=== PATIENT | male | born 1945 | race Caucasian/White ===

== ENCOUNTER → 2017-03-14 | Outpatient (CLI) | payer MEDICARE, OTHER ==
[~2017-03-14] MED LIST: REGADENOSON 0.4 MG/5 ML SYRINGE ONE
== END | disposition home or self-care (01) ==
LOC: CFH 08:11
PROVIDERS: ATTEND Internal Medicine Cardiovascular Disease
DX: I48.91 Unspecified atrial fibrillation (principal); I10 Essential (primary) hypertension
CPT/HCPCS: 78452; 93017; A9502; J2785

== ENCOUNTER → 2017-03-17 | Outpatient (CLI) | payer MEDICARE, OTHER ==
[~2017-03-17] MED LIST changes: +ASPI-496 PO; +ATOR40TA78 PO; +CLOP75TA PO; +DRON400T PO; +ISOS60TA36 PO; +METO-93 PO; +MULT-658 PO; +OMEG-76 PO; +RED600CA2 PO; -REGADENOSON 0.4 MG/5 ML SYRINGE ONE; +UBID1CAP43 PO
[2017-03-17 14:15] LABS: HEMATOCRIT 42.5 % (39.2-51.8); HEMOGLOBIN 14.7 g/dL (13.7-18.0); WHITE BLOOD COUNT 7.7 x10^3/uL (3.4-10)
[2017-03-17 14:25] LABS: BLOOD UREA NITROGEN 16 mg/dL (7-18)
== END | disposition home or self-care (01) ==
LOC: STAR 13:09
PROVIDERS: ATTEND Internal Medicine Cardiovascular Disease
DX: I48.0 Paroxysmal atrial fibrillation (principal); I10 Essential (primary) hypertension; E78.4 Other hyperlipidemia; I25.118 Atherosclerotic heart disease of native coronary artery with other forms of angina pectoris
CPT/HCPCS: 36415; 80048; 85025

== ENCOUNTER 2017-03-27 10:36 | Day surgery (SDC) | payer MEDICARE, OTHER ==
[~2017-03-27] VITALS: Ht 185.4 cm; Wt 82.7 kg
[2017-03-27] MEDS ORDERED: SODIUM CHLORIDE 0.9% 1,000 ML IV ONE (10:48)
[2017-03-27 11:49] LABS: BLOOD UREA NITROGEN 18 mg/dL (7-18)
[2017-03-27] MEDS ORDERED: VERAPAMIL 2.5 MG/ML, 2ML ONE (12:17)
[2017-03-27] MEDS ORDERED: MIDAZOLAM 1 MG/ML, 5ML ONE (12:17)
[2017-03-27] MEDS ORDERED: FENTANYL PF 100 MCG/2ML ONE (12:17)
[2017-03-27] MEDS ORDERED: LIDOCAINE 2%, 20ML ONE (12:17)
[2017-03-27] MEDS ORDERED: TICAGRELOR 90 MG TABLET ONE (12:17)
[2017-03-27] MEDS ORDERED: NITROGLYCERIN 5 MG/ML, 10ML ONE (12:17)
[2017-03-27] MEDS ORDERED: BIVALIRUDIN 250 MG ONE (12:17)
[2017-03-27] MEDS ORDERED: HEPARIN 1,000 UNITS/ML, 10ML ONE (12:18)
[2017-03-27 15:52] VITALS: BP 106/66
[2017-03-27 19:08] VITALS: BP 151/74
== END 2017-03-27 23:46 | disposition home or self-care (01) ==
LOC: CACL 10:36 → 5SO 14:50 → CACL 23:46
PROVIDERS: ATTEND Internal Medicine Cardiovascular Disease
DX: I25.110 Atherosclerotic heart disease of native coronary artery with unstable angina pectoris (principal); I10 Essential (primary) hypertension; E78.5 Hyperlipidemia, unspecified; Z79.82 Long term (current) use of aspirin
CPT/HCPCS: 36415; 80048; 93458; 99156; 99157; C1725; C1769; C1874; C1887; C1894; C9600; J0583; J1644; J2250; J3010; J3490; J7030; Q9967

== ENCOUNTER → 2017-05-02 | Outpatient (CLI) | payer MEDICARE, OTHER ==
[~2017-05-02] MED LIST changes: +APIX5TAB PO; +OMNIPAQUE 350 MG/ML, 150 ML BOTTLE ONE; +SOTA120T14 PO
== END ==
LOC: CFH 11:34
PROVIDERS: ATTEND Internal Medicine Cardiovascular Disease
DX: I48.91 Unspecified atrial fibrillation (principal); I25.118 Atherosclerotic heart disease of native coronary artery with other forms of angina pectoris; E78.2 Mixed hyperlipidemia; I10 Essential (primary) hypertension; I48.0 Paroxysmal atrial fibrillation
CPT/HCPCS: 71046; 75572; 82565; Q9967

== ENCOUNTER 2017-05-03 06:23 | Inpatient (IN) | payer MEDICARE, OTHER ==
[2017-05-02 13:23] VITALS: BP 146/95
[~2017-05-03] VITALS: Ht 185.4 cm; Wt 83.7 kg
[~2017-05-03 06:23] MED LIST changes: -APIX5TAB PO; -OMNIPAQUE 350 MG/ML, 150 ML BOTTLE ONE; -SOTA120T14 PO
[2017-05-03] MEDS ORDERED: SODIUM CHLORIDE 0.9% 1,000 ML IV SCH (06:32)
[2017-05-03] MEDS ORDERED: APIX5TAB PO (06:53)
[2017-05-03] MEDS ORDERED: SODIUM CHLORIDE 0.9% 1,000 ML IV ONE (07:00)
[2017-05-03] MEDS ORDERED: LIDOCAINE 2%, 20ML ONE (07:35)
[2017-05-03] MEDS ORDERED: PROTAMINE SULFATE 10 MG/ML, 5ML ONE (07:35)
[2017-05-03] MEDS ORDERED: HEPARIN 1,000 UNITS/ML, 10ML ONE (07:35)
[2017-05-03] MEDS ORDERED: MIDAZOLAM 1 MG/ML, 5ML ONE (07:57)
[2017-05-03] MEDS ORDERED: FENTANYL PF 250 MCG/5ML ONE (07:57)
[2017-05-03] MEDS ORDERED: APIXABAN 5 MG TABLET ONE (11:27)
[2017-05-03] MEDS: APIXABAN 5 MG TABLET PO SCH ×2 (11:30→21:36)
[2017-05-03] MEDS ORDERED: ACETAMINOPHEN 325 MG TABLET PO PRN ×2 (11:30→12:00)
[2017-05-03] MEDS ORDERED: ZOLPIDEM 5MG TABLET PO PRN (11:30)
[2017-05-03] MEDS ORDERED: LORazepam 2 MG/ML, 1ML IVPush PRN (12:00)
[2017-05-03] MEDS ORDERED: OXYcodone 5 MG/5 ML ORAL.SOL UDC PO PRN (12:00)
[2017-05-03] MEDS ORDERED: MIDAZOLAM 1 MG/ML, 2ML IV PRN (12:00)
[2017-05-03] MEDS ORDERED: HYDROmorphone 1 MG/ML, 1ML IV PRN (12:00)
[2017-05-03] MEDS ORDERED: FENTANYL PF 100 MCG/2ML IV PRN (12:00)
[2017-05-03] MEDS ORDERED: EPHEDRINE 50 MG/ML, 1ML IVPush PRN (12:00)
[2017-05-03] MEDS ORDERED: LABETALOL 5MG/ML, 20ML IV PRN (12:00)
[2017-05-03] MEDS ORDERED: ONDANSETRON 2MG/ML, 2ML IVPush PRN (12:00)
[2017-05-03 14:13] VITALS: BP 153/83
[2017-05-03] MEDS ORDERED: DEXAMETHASONE 4 MG/ML, 1ML ONE (16:23)
[2017-05-03] MEDS ORDERED: SUCCINYLCHOLINE 20 MG/ML, 10ML ONE (16:23)
[2017-05-03] MEDS ORDERED: ONDANSETRON 2MG/ML, 2ML ONE (16:23)
[2017-05-03] MEDS ORDERED: PROPOFOL 10 MG/ML, 20ML ONE (16:23)
[2017-05-03] MEDS ORDERED: MORPHINE SULFATE 4 MG/ML, 1ML IVPush PRN (17:30)
[2017-05-03] MEDS: SOTALOL 120MG TABLET PO SCH (17:54)
[2017-05-03] MEDS: OXYcodone/APAP 7.5/325MG TABLET PO PRN ×2 (17:54→23:20)
[2017-05-03 19:26] VITALS: BP 162/81
[2017-05-03 19:28] LABS: BASOPHILS % (AUTO) 0 % (0-1); EOSINOPHILS % (AUTO) 0 % (1-7); LYMPHOCYTES # (AUTO) 0.81 x10^3/uL (1-3.4); LYMPHOCYTES % (AUTO) 6 % (22-44); MD NO; MEAN CORPUSCULAR HEMOGLOBIN 33.3 pg (27.5-34.5); MEAN CORPUSCULAR HGB CONC 34.2 g/dL (33.2-36.2); MEAN CORPUSCULAR VOLUME 97.6 fL (81-97); MEAN PLATELET VOLUME 8.3 fL (7.4-10.4); MONOCYTES # (AUTO) 0.32 x10^3/uL (0.2-0.8); MONOCYTES % (AUTO) 2 % (2-9); NEUTROPHILS # (AUTO) 13.58 x10^3/uL (1.8-6.8); NEUTROPHILS % (AUTO) 92 % (42-75); PLATELET COUNT 178 x10^3/uL (130-400); RED CELL DISTRIBUTION WIDTH 12.3 % (9.4-14.8)
[2017-05-03] MEDS: ATORVASTATIN 40 MG TABLET PO SCH (21:36)
[2017-05-04 02:11] VITALS: BP 125/81
[2017-05-04] MEDS: SOTALOL 120MG TABLET PO SCH ×2 (05:56→18:36)
[2017-05-04 06:08] LABS: BASOPHILS # (AUTO) 0.04 x10^3/uL (0-0.1); BASOPHILS % (AUTO) 0 % (0-1); EOSINOPHILS # (AUTO) 0.02 x10^3/uL (0-0.4); EOSINOPHILS % (AUTO) 0 % (1-7); LYMPHOCYTES % (AUTO) 12 % (22-44); MD NO; MEAN CORPUSCULAR HEMOGLOBIN 33.4 pg (27.5-34.5); MEAN CORPUSCULAR HGB CONC 34.1 g/dL (33.2-36.2); MEAN PLATELET VOLUME 8.1 fL (7.4-10.4); MONOCYTES % (AUTO) 7 % (2-9); NEUTROPHILS # (AUTO) 10.93 x10^3/uL (1.8-6.8); NEUTROPHILS % (AUTO) 80 % (42-75); PLATELET COUNT 151 x10^3/uL (130-400); RED BLOOD COUNT 4.09 x10^6/uL (4.38-5.82); RED CELL DISTRIBUTION WIDTH 11.9 % (9.4-14.8)
[2017-05-04 06:13] LABS: ANION GAP 6 mmol/L (5-15); CALCIUM 8.6 mg/dL (8.5-10.1); CHLORIDE 106 mmol/L (98-107)
[2017-05-04 06:36] VITALS: BP 119/76
[2017-05-04] MEDS ORDERED: CLOPIDOGREL 75 MG TABLET PO SCH (09:00)
[2017-05-04] MEDS ORDERED: TEMPLATE NON-FORMULARY MED. (Ubidecarenone/Vit E Acetate (Co Q-10 100 Mg Softgel) 1 CAP) PO SCH (09:00)
[2017-05-04] MEDS ORDERED: TEMPLATE NON-FORMULARY MED. (Red Yeast Rice** 600 MG) PO SCH (09:00)
[2017-05-04] MEDS: APIXABAN 5 MG TABLET PO SCH ×2 (09:28→20:06)
[2017-05-04] MEDS: MULTIVITAMIN 1 TABLET PO SCH (09:28)
[2017-05-04] MEDS: ISOSORBIDE MONONITRATE ER 60 MG TABLET PO SCH (09:28)
[2017-05-04] MEDS: OMEGA-3/FISH OIL CAPSULE PO SCH (09:28)
[2017-05-04 13:17] VITALS: BP 119/66
[2017-05-04 18:41] VITALS: BP 122/64
[2017-05-04 19:48] VITALS: BP 103/61
[2017-05-04] MEDS: ATORVASTATIN 40 MG TABLET PO SCH (20:06)
[2017-05-05 01:51] VITALS: BP 109/64
[2017-05-05] MEDS: SOTALOL 120MG TABLET PO SCH ×2 (06:30→17:50)
[2017-05-05 06:58] VITALS: BP 106/66
[2017-05-05] MEDS: APIXABAN 5 MG TABLET PO SCH ×2 (08:42→20:34)
[2017-05-05] MEDS: ISOSORBIDE MONONITRATE ER 60 MG TABLET PO SCH (08:42)
[2017-05-05] MEDS: MULTIVITAMIN 1 TABLET PO SCH (08:42)
[2017-05-05] MEDS: OMEGA-3/FISH OIL CAPSULE PO SCH (08:44)
[2017-05-05 13:15] VITALS: BP 111/61
[2017-05-05 20:31] VITALS: BP 109/64
[2017-05-05] MEDS: ATORVASTATIN 40 MG TABLET PO SCH (20:34)
[2017-05-06 02:08] VITALS: BP 116/66
[2017-05-06] MEDS: SOTALOL 120MG TABLET PO SCH (06:08)
[2017-05-06] MEDS ORDERED: SOTA120T14 PO (07:30)
[2017-05-06 08:17] VITALS: BP 149/77
[2017-05-06] MEDS: MULTIVITAMIN 1 TABLET PO SCH (08:19)
[2017-05-06] MEDS: ISOSORBIDE MONONITRATE ER 60 MG TABLET PO SCH (08:20)
[2017-05-06] MEDS: APIXABAN 5 MG TABLET PO SCH (08:20)
[2017-05-06] MEDS: OMEGA-3/FISH OIL CAPSULE PO SCH (08:20)
== END 2017-05-06 10:57 | disposition home or self-care (01) | DRG 274 ==
LOC: CACL 06:23 → ORIP 11:01 → 5SO 12:40 → OBSVTOIN 05-04 14:38
PROVIDERS: ADMIT Internal Medicine Cardiovascular Disease; ATTEND Internal Medicine Cardiovascular Disease
PROC: 02583ZZ Destruction of Conduction Mechanism, Percutaneous Approach (ICD-10-PCS; principal; 2017-05-04)
PROC: 02K83ZZ Map Conduction Mechanism, Percutaneous Approach (ICD-10-PCS; 2017-05-04)
PROC: 4A023FZ Measurement of Cardiac Rhythm, Percutaneous Approach (ICD-10-PCS; 2017-05-04)
PROC: 4A0234Z Measurement of Cardiac Electrical Activity, Percutaneous Approach (ICD-10-PCS; 2017-05-04)
PROC: B24BZZ4 Ultrasonography of Heart with Aorta, Transesophageal (ICD-10-PCS; 2017-05-04)
DX: I48.0 Paroxysmal atrial fibrillation (principal); I95.9 Hypotension, unspecified; D68.69 Other thrombophilia; E78.5 Hyperlipidemia, unspecified; E78.00 Pure hypercholesterolemia, unspecified; I25.10 Atherosclerotic heart disease of native coronary artery without angina pectoris; I25.2 Old myocardial infarction; I10 Essential (primary) hypertension; Z87.891 Personal history of nicotine dependence; Z82.49 Family history of ischemic heart disease and other diseases of the circulatory system; Z79.01 Long term (current) use of anticoagulants; Z79.82 Long term (current) use of aspirin
CPT/HCPCS: 36415; 80048; 85025; 85347; 93005; 93312; 93321; 93325; 93613; 93656; 93662; C1732; C1766; C1893; C1894; G0378; J1100; J1644; J2250; J2405; J2704; J2720; J3010; J3490; C1730; C1759; J0330

== ENCOUNTER → 2019-04-04 | Outpatient (CLI) | payer MEDICARE, OTHER ==
[~2019-04-04] MED LIST changes: +APIX5TAB PO; +ASPI325T17 PO; +DIGO125T PO; +GLUC1CAP18 PO; +NAPR220C2 PO; +SOTA120T14 PO; +SOTA160T13 PO
[2019-04-04 13:01] LABS: BASOPHILS # (AUTO) 0.01 x10^3/uL (0-0.1); BASOPHILS % (AUTO) 0 % (0-1); EOSINOPHILS # (AUTO) 0.13 x10^3/uL (0-0.4); EOSINOPHILS % (AUTO) 2 % (1-7); LYMPHOCYTES # (AUTO) 1.79 x10^3/uL (1-3.4); LYMPHOCYTES % (AUTO) 25 % (22-44); MD NO; MEAN CORPUSCULAR HEMOGLOBIN 33.5 pg (27.5-34.5); MEAN CORPUSCULAR HGB CONC 33.8 g/dL (33.2-36.2); MEAN CORPUSCULAR VOLUME 99.1 fL (81-97); MEAN PLATELET VOLUME 7.9 fL (7.4-10.4); MONOCYTES # (AUTO) 0.57 x10^3/uL (0.2-0.8); MONOCYTES % (AUTO) 8 % (2-9); NEUTROPHILS # (AUTO) 4.83 x10^3/uL (1.8-6.8); NEUTROPHILS % (AUTO) 66 % (42-75); PLATELET COUNT 174 x10^3/uL (130-400); RED BLOOD COUNT 4.76 x10^6/uL (4.38-5.82); RED CELL DISTRIBUTION WIDTH 12.4 % (9.4-14.8)
[2019-04-04 13:31] LABS: CHLORIDE 106 mmol/L (98-107)
[2019-04-04 13:40] LABS: ANION GAP 4 mmol/L (5-15); CALCIUM 9.9 mg/dL (8.5-10.1); CREATININE 1.18 mg/dL (0.7-1.3)
== END | disposition home or self-care (01) ==
LOC: CFH 09:35
PROVIDERS: ATTEND Internal Medicine Cardiovascular Disease
DX: I48.0 Paroxysmal atrial fibrillation (principal); I25.118 Atherosclerotic heart disease of native coronary artery with other forms of angina pectoris; E78.2 Mixed hyperlipidemia; I10 Essential (primary) hypertension
CPT/HCPCS: 36415; 71046; 80048; 85025

== ENCOUNTER 2019-04-05 06:25 | Observation (INO) | payer MEDICARE, OTHER ==
[~2019-04-05] VITALS: Ht 182.9 cm; Wt 83.4 kg
[~2019-04-05 06:25] MED LIST changes: -ASPI325T17 PO; -DIGO125T PO; -GLUC1CAP18 PO; -NAPR220C2 PO; -SOTA160T13 PO
[2019-04-05] MEDS ORDERED: GLUC1CAP18 PO (06:49)
[2019-04-05] MEDS ORDERED: NAPR220C2 PO (06:50)
[2019-04-05 06:57] VITALS: BP 152/82
[2019-04-05] MEDS: SODIUM CHLORIDE 0.9% 1,000 ML IV SCH ×3 (07:18→23:18)
[2019-04-05] MEDS ORDERED: CEFAZOLIN PMX 1GM/50ML 50 ML ONE (07:22)
[2019-04-05] MEDS ORDERED: FENTANYL PF 100 MCG/2ML ONE (07:22)
[2019-04-05] MEDS ORDERED: MIDAZOLAM 1 MG/ML, 5ML ONE (07:22)
[2019-04-05] MEDS ORDERED: CEFAZOLIN 1,000 MG ONE (07:23)
[2019-04-05] MEDS ORDERED: LIDOCAINE 2%, 20ML ONE (07:23)
[2019-04-05] MEDS ORDERED: CEFAZOLIN PMX 1GM/50ML 50 ML IVPB ONE (07:30)
[2019-04-05] MEDS ORDERED: SOTA160T13 PO (09:13)
[2019-04-05 09:30] VITALS: BP 125/67
[2019-04-05] MEDS ORDERED: [UNRECOGNIZED DRUG - REMARK] MC PRN (09:30)
[2019-04-05 12:10] VITALS: BP 102/62
[2019-04-05] MEDS: DIGOXIN 0.125 MG TABLET PO SCH (13:14)
[2019-04-05] MEDS: CEFAZOLIN PMX 1GM/50ML 50 ML IVPB SCH ×2 (13:16→20:03)
[2019-04-05 14:00] VITALS: BP 103/59
[2019-04-05] MEDS: ACETAMINOPHEN 325 MG TABLET PO PRN (20:03)
[2019-04-05 20:08] VITALS: BP 120/65
[2019-04-05] MEDS: SODIUM CHLORIDE FLUSH 10ML SYR IVF SCH (21:13)
[2019-04-06 00:05] VITALS: BP 133/77
[2019-04-06] MEDS: CEFAZOLIN PMX 1GM/50ML 50 ML IVPB SCH (01:08)
[2019-04-06] MEDS: ACETAMINOPHEN 325 MG TABLET PO PRN (01:12)
[2019-04-06] MEDS: SODIUM CHLORIDE 0.9% 1,000 ML IV SCH (07:18)
[2019-04-06] MEDS ORDERED: DIGO125T PO (09:00)
[2019-04-06] MEDS ORDERED: ASPI325T17 PO (09:01)
[2019-04-06 09:16] VITALS: BP 109/76
[2019-04-06] MEDS: DIGOXIN 0.125 MG TABLET PO SCH (09:54)
[2019-04-06] MEDS: SODIUM CHLORIDE FLUSH 10ML SYR IVF SCH (09:54)
[2019-04-06 10:03] VITALS: BP 122/73
== END 2019-04-06 11:23 | disposition home or self-care (01) ==
LOC: CACL 06:25 → 5SO 09:15 → CACL 22:14 → 5SO 22:15 → INTOOBSV 22:15 → DCLOUNGE 04-06 11:13
PROVIDERS: ADMIT Internal Medicine Cardiovascular Disease; ATTEND Internal Medicine Cardiovascular Disease
DX: I48.0 Paroxysmal atrial fibrillation (principal); I48.91 Unspecified atrial fibrillation; I10 Essential (primary) hypertension; Z79.899 Other long term (current) drug therapy; E78.5 Hyperlipidemia, unspecified; M19.90 Unspecified osteoarthritis, unspecified site; D68.69 Other thrombophilia; I25.10 Atherosclerotic heart disease of native coronary artery without angina pectoris; Z95.0 Presence of cardiac pacemaker; Z79.01 Long term (current) use of anticoagulants
CPT/HCPCS: 33208; 71045; 96365; 96366; 99156; 99157; C1779; C1785; C1892; G0378; J0690; J2250; J3010; J3490